=== PATIENT | female | born 1990 | race Caucasian/White ===

== ENCOUNTER 2017-12-30 11:47 | Emergency (ER) | payer SELFPAY ==
[~2017-12-30] VITALS: Ht 381 cm; Wt 97.6 kg
[2017-12-30 12:14] VITALS: BP 134/76; PULSE 76; TEMP 98.6
[2017-12-30] MEDS ORDERED: NAPROXEN 3375 MG/TAB PO (14:33)
[2017-12-30] MEDS ORDERED: CEPHALEXIN500 M1 PO (14:33)
== END 2017-12-30 14:40 | disposition home or self-care (01) ==
LOC: COL.ER 11:47
DX: M54.2 Cervicalgia (principal); R59.1 Generalized enlarged lymph nodes

== ENCOUNTER 2019-03-20 11:56 | Emergency (ER) | payer SELFPAY ==
[~2019-03-20] VITALS: Ht 150 cm; Wt 104.1 kg
[~2019-03-20 11:56] MED LIST: CEPHALEXIN500 M1 PO; NAPROXEN 3375 MG/TAB PO
[2019-03-20 12:06] VITALS: BP 127/77; TEMP 98.2
[2019-03-20] MEDS ORDERED: PREDNISONE20 MG PO (15:09)
[2019-03-20 16:01] VITALS: PULSE 90
== END 2019-03-20 16:00 | disposition home or self-care (01) ==
LOC: COL.ER 11:56
DX: L25.9 Unspecified contact dermatitis, unspecified cause (principal); F17.210 Nicotine dependence, cigarettes, uncomplicated
CPT/HCPCS: J7512